=== PATIENT | male | born 1990 | race Caucasian/White ===

== ENCOUNTER 2017-05-13 23:49 | Emergency (ER) | payer MEDICAID ==
[~2017-05-13] VITALS: Ht 188 cm; Wt 93.0 kg
[2017-05-13 23:58] VITALS: BP 158/92
[2017-05-14] MEDS ORDERED: cefTRIAXone SOD 1,000 MG VL IM ONE (00:45)
== END 2017-05-14 00:58 | disposition home or self-care (01) ==
LOC: ER 23:54
DX: T63.301A Toxic effect of unspecified spider venom, accidental (unintentional), initial encounter (principal); L03.113 Cellulitis of right upper limb; Y92.89 Other specified places as the place of occurrence of the external cause
CPT/HCPCS: 96372; 99283; J0696

== ENCOUNTER 2019-06-21 12:34 | Emergency (ER) | payer MEDICAID ==
[~2019-06-21] VITALS: Ht 188 cm; Wt 92.1 kg
[2019-06-21 14:36] LABS: Basophils # (auto) 0 uL; Basophils % (auto) 0.4 % (0.0-2.0); Eosinophils # (auto) 0.3 uL; Eosinophils % (auto) 2.7 % (0.0-7.0); Hematocrit 47.7 % (41.0-53.0); Hemoglobin 16.4 g/dL (13.5-17.5); Lymphocytes # (auto) 2.5 uL; Lymphocytes % (auto) 25.4 % (10.0-50.0); Mean Corpuscular Hemoglobin 29.3 pg (28.0-32.0); Mean Corpuscular Hgb Conc. 34.3 g/dL (32.0-36.0); Mean Corpuscular Volume 85.4 fL (80.0-100.0); Monocytes # (auto) 0.7 uL; Monocytes % (auto) 6.8 % (0.0-12.0); Neutrophils # (auto) 6.5 uL; Neutrophils % (auto) 64.7 % (37.0-80.0); Nucleated Red Blood Cells % 0.2 %; Platelet Count (auto) 275 10^3/uL (140-450); Red Blood Cells 5.58 10^6/uL (4.5-5.90); Red Cell Distribution Width 13.1 % (11.8-14.3)
[2019-06-21 14:53] LABS: Potassium 4.1 mmol/L (3.5-5.1)
[2019-06-21 14:56] LABS: BUN/Creatinine Ratio 21.4; Bilirubin, Total 0.3 mg/dL (0.2-1.0); Total Protein 8.5 g/dL (6.4-8.2)
[2019-06-21 15:50] VITALS: BP 119/87
== END 2019-06-21 15:57 | disposition home or self-care (01) ==
LOC: ER 12:39
DX: J20.9 Acute bronchitis, unspecified (principal)
CPT/HCPCS: 36415; 71046; 80053; 85025